=== PATIENT | male | born 1945 | race Caucasian/White ===

== ENCOUNTER → 2019-05-18 07:57 | Outpatient (CLI) | payer MEDICARE ==
--- NOTE | 2019-05-19 14:13 | EC ---
PATIENT:FIDENCIO ALSTON DATE OF SERVICE: 05/18/19 SEX: M MEDICAL RECORD: [id number] DATE OF : 43 [facility] AGE OF PATIENT: 73 ADMISSION DATE: 05/18/19 REFERRING PHYSICIAN: INTERPRETING PHYSICIAN: VENANCIO NGO MD ECHOCARDIOGRAM REPORT ECHO CHARGES 4 ECHO COMPLETE Date: 05/18/19 CLINICAL DIAGNOSIS: H/O CAD/CVA/A-FIB/HTN ECHOCARDIOGRAPHIC MEASUREMENTS (adult normal given) AC root (d.<3.7cm) 3.3 cm LV Septum d (<1.2 cm> 1.7 cm Valve Excursion 1.6 cm LV Septum (systole) 2.1 cm Left Atria (s.<4.0cm> 5.1 cm LVPW d(<1.2cm) 1.5 cm RV (d.<2.3cm) 3.5 cm LVPW (sytole) 2.1 cm LV diastole(<5.6CM) 5.3 cm MV E-F(>70mm/sec) cm LV systole 3.4 cm LVOT Diameter 2.1 cm MV exc.(>10mm) cm Est.ejection fraction (50-75%) % DOPPLER: LVIT cm/sec A cm/sec E 126 cm/sec LA cm/sec RVSP 39.0 mmHg LVOT 127 cm/sec AOP1/2T m/s Asc. Ao 226 cm/sec RVOT 67.0 cm/sec RA cm/sec PA 83.0 cm/sec AV Gradient Peak 20.4 mmHg AV Mean 10.3 mmHg AV Area 1.6 cm MV Gradient Peak 6.9 mmHg MV Mean 2.4 mmHg MV Area cm COMMENTS: OP - HC Cake Maker: Pilar BRUNSONDSOE Director Of Security: 3 Dr. Asif TAPE# PACS Pericardial Effusion N DATE OF SERVICE: Adequate 2-D echo, Color-Flow and Spectral Doppler, and M-mode LVH is present. LV internal dimensions are normal. Wall motion is normal. EF is greater than or equal to 55%. Aortic valve is sclerotic. There is no evidence of stenosis on Doppler interrogation. Left atrium is dilated 5.1 cm. Mitral valve shows no prolapse. Mild MR. Right-sided chambers are grossly normal. Mild TR. ECHOCARDIOGRAM REPORT [id number] FIDENCIO ALSTON TRANSINT:[id number] Voice Confirmation ID: [id number] DOCUMENT ID: [id number] VENANCIO NGO MD at 1413 CC: [id number] DICTATION DATE: 05/18/19 1338 AGRICULTURAL EQUIPMENT OPERATOR: 05/18/19 1818 DEP CLI 05/18/19 [place] [id number] [place] [id number]
== END | disposition home or self-care (01) ==
LOC: D.HCCECHO 07:57
PROVIDERS: ATTEND Internal Medicine Interventional Cardiology
DX: I25.10 Atherosclerotic heart disease of native coronary artery without angina pectoris (principal)